=== PATIENT | female | born 1965 | race Caucasian/White ===

== ENCOUNTER 2016-10-07 17:09 | Inpatient (IN) | payer MEDICAID, SELFPAY ==
[2016-10-07] MEDS ORDERED: HIGH BP MED (17:22)
[2016-10-07] MEDS ORDERED: LANTUS100 UNITS/ SC (17:22)
[2016-10-07] MEDS ORDERED: GLUCOPHAGE1000 M1 PO (17:22)
[2016-10-07] MEDS ORDERED: ZOCOR40 M1 PO (17:23)
[2016-10-07] MEDS ORDERED: ZESTORETIC 20-1 EAC4 PO (17:23)
[2016-10-07 18:06] LABS: BASO % 0.4 % (0-2); EOS % 1.5 % (0-7); EOSINOPHIL ABSOLUTE COUNT 0.1 tho/cmm (0.0-0.7); HCT-HEMATOCRIT 40.4 % (34.0-49.0); HGB-HEMOGLOBIN 13.8 gm/dl (12.0-15.5); IMMATURE GRANULOCYTES ABSOLUTE 0.01 tho/cmm (0-0.03); IMMATURE GRANULOCYTES PERCENT 0.1 % (0-0.3); LYMPH ABSOLUTE COUNT 2.5 tho/cmm (0.8-4.5); MCH (MEAN CORPUSCULAR HGB) 28.8 pg (28.0-32.0); MCHC MEAN CORPUSCULAR HGB CONC 34.2 % (32.0-36.0); MCV (MEAN CELL VOLUME) 84.3 fl (82.0-96.0); MEAN PLATELET VOLUME 9.1 cmc (9.4-12.4); MONO % 4.3 % (0-12); MONOCYTE ABSOLUTE COUNT 0.4 tho/cmm (0.0-1.2); NEUTROPHIL ABSOLUTE COUNT 5.5 tho/cmm (1.6-8.0); NEUTROPHIL-AUTOMATED 5.5 tho/cmm (1.6-8.0); NEUTROPHILS % 64.7 % (40-80); PLATELET COUNT 204 tho/cmm (150-450); RED BLOOD COUNT 4.79 mil/cmm (4.00-5.20); RED CELL DISTRIBUTION WIDTH 12.6 % (12.4-16.4); WHITE BLOOD COUNT 8.5 tho/cmm (4.0-10.0)
[2016-10-07 18:25] LABS: ALB/GLOB RATIO 0.8 (0.8-2.0); ALBUMIN 3.4 g/dl (3.5-5.0); ALKALINE PHOSPHATASE 84 U/L (33-138); ALT/SGPT 21 U/L (12-78); ANION GAP 14 mmol/L (0-20); AST/SGOT 13 U/L (10-40); BILIRUBIN,TOTAL 0.4 mg/dl (0-1.5); BLOOD UREA NITROGEN 15 mg/dl (6-24); C-REACTIVE PROTEIN 1.1 mg/dl (0-0.9); CALCIUM 9.4 mg/dl (8.5-10.5); CARBON DIOXIDE-VENOUS 27 mmol/L (22-32); CHLORIDE 104 mmol/l (96-110); CREATININE 0.82 mg/dl (0.50-1.10); GLUCOSE 99 mg/dL (70-110); LIPASE 214 U/L (73-393); SODIUM 141 mmol/L (135-145); eGFR VALUE FOR BLACK >90 mL/Min
[2016-10-07 18:27] LABS: ESR-ERYTHROCYTE SED RATE 29 mm/hr (0-30)
[2016-10-07 20:25] LABS: INR 0.9 INR (0.9-1.1); PROTHROMBIN TIME 10.6 SECONDS (9.0-13.6)
[2016-10-09 04:29] LABS: BASO % 0.3 % (0-2); EOS % 2.2 % (0-7); EOSINOPHIL ABSOLUTE COUNT 0.1 tho/cmm (0.0-0.7); HCT-HEMATOCRIT 36.4 % (34.0-49.0); HGB-HEMOGLOBIN 12.2 gm/dl (12.0-15.5); IMMATURE GRANULOCYTES ABSOLUTE 0.01 tho/cmm (0-0.03); IMMATURE GRANULOCYTES PERCENT 0.2 % (0-0.3); LYMPH % 29.9 % (20-45); LYMPH ABSOLUTE COUNT 1.8 tho/cmm (0.8-4.5); MCH (MEAN CORPUSCULAR HGB) 28.1 pg (28.0-32.0); MCHC MEAN CORPUSCULAR HGB CONC 33.5 % (32.0-36.0); MCV (MEAN CELL VOLUME) 83.9 fl (82.0-96.0); MONO % 6.2 % (0-12); MONOCYTE ABSOLUTE COUNT 0.4 tho/cmm (0.0-1.2); NEUTROPHIL ABSOLUTE COUNT 3.7 tho/cmm (1.6-8.0); NEUTROPHIL-AUTOMATED 3.7 tho/cmm (1.6-8.0); NEUTROPHILS % 61.2 % (40-80); PLATELET COUNT 181 tho/cmm (150-450); RED BLOOD COUNT 4.34 mil/cmm (4.00-5.20); RED CELL DISTRIBUTION WIDTH 12.5 % (12.4-16.4)
[2016-10-11] MEDS ORDERED: ACETAMINOPHEN325 M2 PO (14:31)
[2016-10-11] MEDS ORDERED: NOVOLOG100 UNITS/ SC ×2 (14:38)
[2016-10-11] MEDS ORDERED: SULFAMYLON60 GM EXT (14:39)
[2016-10-11] MEDS ORDERED: LEVAQUIN750 M1 PO (14:40)
[2016-10-11] MEDS ORDERED: CLEOCIN HCL300 M1 PO (14:41)
[2016-12-11] MEDS ORDERED: COMPAZINE10 MG PO (14:25)
[2016-12-11] MEDS ORDERED: NORCO 5-325 TA1 EACH PO (14:25)
[2016-12-11] MEDS ORDERED: CEPHALEXIN500 M1 PO (14:27)
[2016-12-13] MEDS ORDERED: HYDROCHLOROTHIAZIDE PO (12:28)
[2016-12-13] MEDS ORDERED: KEFLEX500 M4 PO (12:50)
[2016-12-13] MEDS ORDERED: COZAAR100 M1 PO (12:50)
[2016-12-13] MEDS ORDERED: HYDROCHLOROTHIA25 M1 PO (12:50)
[2016-12-13] MEDS ORDERED: NORCO 5-325 TA1 EACH PO (12:51)
[2016-12-13] MEDS ORDERED: SIMETHICONE PO (12:52)
[2016-12-19] MEDS ORDERED: COLACE100 M1 PO (12:59)
[2016-12-20] MEDS ORDERED: DIFLUCAN100 M1 PO (12:29)
== END 2016-10-11 15:25 | DRG 624 ==
LOC: EDMED 17:09 → EMR2 20:10 → 5EB 22:00
PROVIDERS: Emergency Medicine; Family Medicine; ADMIT Internal Medicine
PROC: 0JBR0ZZ Excision of Left Foot Subcutaneous Tissue and Fascia, Open Approach (ICD-10-PCS; principal; 2016-10-08)
DX: E11.621 Type 2 diabetes mellitus with foot ulcer (principal); L97.529 Non-pressure chronic ulcer of other part of left foot with unspecified severity; E11.65 Type 2 diabetes mellitus with hyperglycemia; I10 Essential (primary) hypertension; B35.3 Tinea pedis; M06.9 Rheumatoid arthritis, unspecified; E66.9 Obesity, unspecified; Z68.30 Body mass index [BMI] 30.0-30.9, adult; Z88.8 Allergy status to other drugs, medicaments and biological substances; Z79.4 Long term (current) use of insulin; Z79.899 Other long term (current) drug therapy
CPT/HCPCS: J1650; J1815; J2543; J3370; J7030; J7050